=== PATIENT | male | born 1955 | race Caucasian/White ===

== ENCOUNTER 2018-09-08 17:17 | Emergency (ER) | payer OTHER ==
[2018-09-08 17:24] VITALS: BP 165/79
[2018-09-08] MEDS ORDERED: LIDOCAINE 1% INJ-PF (10 MG/ML) 30 ML SDV INJ ONE (17:33)
--- NOTE | 2018-09-08 17:38 | ER Document Report ---
ED General - General Chief Complaint: Skin Problem Stated Complaint: SKIN ISSUE Time Seen by Provider: 09/08/18 17:29 TRAVEL OUTSIDE OF THE [place] IN LAST 30 DAYS: No - HPI Notes: Patient is a 63-year-old male that presents to the emergency department for chief complaint of back abscess. Patient noticed an area of swelling and pain on the right back about 6 days ago. He denies any spontaneous drainage. He denies any history of abscesses in the past. Patient was seen at an urgent care and referred to the emergency room for incision and drainage. He denies any fevers or chills. He has not taken any medication at home for his symptoms. Past Medical History: Negative Past Surgical History: Negative Social History: Reviewed in chart Family History: Reviewed and noncontributory for presenting illness Allergies: Reviewed, see documented allergy list. REVIEW OF SYSTEMS: CONSTITUTIONAL : No fever No chills No diaphoresis No recent illness EENT: No vision changes No congestion No sore throat CARDIOVASCULAR: No chest pain No palpitations RESPIRATORY: No shortness of breath No cough No difficulty breathing GASTROINTESTINAL: No abdominal pain No nausea No vomiting No diarrhea GENITOURINARY: No dysuria No hematuria No difficulty urinating MUSCULOSKELETAL: No back pain No leg pain No arm pain SKIN: No rashes Back abscess LYMPHATIC: No swollen, enlarged glands. NEUROLOGICAL: No lightheadedness No headache No weakness No paresthesias PSYCHIATRIC: No anxiety No depression PHYSICAL EXAMINATION: Vital signs reviewed, nursing noted reviewed. GENERAL: Well-appearing, well-nourished and in no acute distress. HEAD: Atraumatic, normocephalic. EYES: Eyes appear normal, extraocular movements intact, sclera anicteric, conjunctiva are normal. ENT: nares patent, oropharynx clear without exudates. Moist mucous membranes. NECK: Normal range of motion, supple without lymphadenopathy LUNGS: Breath sounds clear to auscultation bilaterally and equal. No wheezes rales or rhonchi. HEART: Regular rate and rhythm without murmurs ABDOMEN: Soft, nontender, normoactive bowel sounds. No rebound, guarding, or rigidity. No masses appreciated. EXTREMITIES: Nontender, good range of motion, no pitting or edema. NEUROLOGICAL: No focal neurological deficits. Moves all extremities spontaneously Motor and sensory grossly intact on exam. PSYCH: Normal mood, normal affect. SKIN: Warm, Dry, normal turgor. Abscess with fluctuance to right thoracic paraspinal region with surrounding erythema, tender to palpation - Related Data Allergies/Adverse Reactions: Sulfa (Sulfonamide Antibiotics) Allergy (Verified 09/08/18 17:40) Past Medical History - Social History Smoking Status: Never Smoker Family History: Reviewed & Not Pertinent Review of Systems - Review of Systems Notes: Dictated Physical Exam - Vital signs Vitals: Temp Pulse Resp BP Pulse Ox 97.7 F 92 12 165/79 H 100 09/08/18 17:22 09/08/18 17:22 09/08/18 17:22 09/08/18 17:22 09/08/18 17:22 - Notes Notes: Dictated Course - Re-evaluation Re-evalutation: 09/08/18 17:35 Vitals reviewed. Nursing notes reviewed. Incision and drainage performed on right back abscess. Patient started on antibiotics for the surrounding cellulitis. Discharged in stable condition. Will follow with PCP - Vital Signs Vital signs: Temp Pulse Resp BP Pulse Ox 97.7 F 92 12 165/79 H 100 09/08/18 17:22 09/08/18 17:22 09/08/18 17:22 09/08/18 17:22 09/08/18 17:22 Procedures - Incision and Drainage Right Back Time completed: 17:36 - packing placed Type: Simple Anesthetic type: 1% Lidocaine mL's of anesthetic: 3 Blade size: 11 I&D procedure: Betadine prep applied Incision Method: Incision made by scalpel Amount/type of drainage: copious Notes: 09/08/18 17:51 Skin cleaned with Betadine. Local infiltration of 3 mL's lidocaine 1% for anesthesia. Good anesthesia achieved. 1.5 cm linear incision made overlying the abscess with an 11 blade scalpel. Copious amounts of purulent discharge expressed. Area packed with iodoform gauze. Patient tolerated well with no immediate complications. Discharge - Discharge Clinical Impression: Abscess, Cellulitis of back Condition: Stable Disposition: HOME, SELF-CARE Instructions: Abscess ([facility]), Cephalexin ([facility]), Post Incision and Drainage, Trimethoprim-Sulfa ([facility]) Additional Instructions: Please return to the emergency department if you have any worsening, or concern of your symptoms. Please return to the emergency department if you develop chest pain, difficulty breathing, severe abdominal pain, or ongoing vomiting. Please follow-up with your primary care physician in 2-3 days and any other recommended physicians. If prescribed, take all medications as directed. If you have any questions or concerns do not hesitate to return the emergency department for evaluation. Remove the packing after 24 hours if it has not already fallen out. Do not replace the packing if it comes out on its own. Prescriptions: Cephalexin Monohydrate [Keflex 500 mg Capsule] 500 mg PO Q6H 7 Days capsule Sulfamethoxazole/Trimethoprim [Bactrim Ds Tablet] 1 each PO BID #14 tablet Referrals: JOSIANE BROWN MD [Primary Care Provider] - Follow up in 3-5 days
== END 2018-09-08 18:04 | disposition home or self-care (01) ==
LOC: ER 17:17
DX: L02.212 Cutaneous abscess of back [any part, except buttock and flank] (principal); L03.312 Cellulitis of back [any part except buttock and flank]; Z88.2 Allergy status to sulfonamides
CPT/HCPCS: 99283; 10060; A6266

== ENCOUNTER 2019-05-16 13:05 | Emergency (ER) | payer SELFPAY ==
[2019-05-16 13:31] VITALS: BP 163/83
--- NOTE | 2019-05-16 14:51 | ER Document Report ---
ED Extremity Problem, Upper - General Chief Complaint: Shoulder Pain Stated Complaint: SHOULDER PAIN Time Seen by Provider: 05/16/19 14:44 Primary Care Provider: [facility] [Provider Group] - Follow up as needed EDUARDO BEARD MD [ACTIVE STAFF] - Follow up as needed AC FIELDS MD [ACTIVE STAFF] - Follow up as needed Mode of Arrival: Ambulatory Information source: Patient Notes: 63-year-old male presented to ED for complaint of bilateral shoulder pain off and on for 3 weeks to a month. He states he woke up one night was severe pain the pain comes and goes he does not have any pain at this time. He states his been to the chiropractor they adjusted them and then he did have pain for few days and it comes back and forth. He states he has been taken Tylenol then this morning he had some stomach pain went to the bathroom had a big bowel movement diarrhea and then was better they went to work and had another stool and now is much better does not have any nausea or pain. He states he did have a colonoscopy about 20 years ago with a large amount of polyps and a large part of his intestines removed due to adhesions and polyps and has not been back to since then. Patient is alert oriented respirations regular and unlabored speaking in full sentences walks with even steady gait there TRAVEL OUTSIDE OF THE [place] IN LAST 30 DAYS: No - HPI Patient complains to provider of: Shoulder Onset: Other Recent injury: No - Month Quality of pain: Sharp Severity of pain: Intermittent Pain Level: Denies Associated symptoms: Other - Deep breath and sometimes movement Exacerbated by: Nothing Relieved by: Nothing Similar symptoms previously: Yes Recently seen / treated by doctor: Yes - Related Data Allergies/Adverse Reactions: Sulfa (Sulfonamide Antibiotics) Allergy (Verified 05/16/19 13:22) Past Medical History - General Information source: Patient - Social History Smoking Status: Never Smoker Frequency of alcohol use: None Drug Abuse: None - 1 is 10 Lives with: Family Family History: Reviewed & Not Pertinent Patient has suicidal ideation: No Patient has homicidal ideation: No - Past Medical History Cardiac Medical History: Reports: None Pulmonary Medical History: Reports: None EENT Medical History: Reports: None Neurological Medical History: Reports: None Endocrine Medical History: Reports: None Renal/ Medical History: Reports: None Malignancy Medical History: Reports None GI Medical History: Reports: Hx Colonoscopy, Hx Endoscopy Musculoskeletal Medical History: Reports None Skin Medical History: Reports None Psychiatric Medical History: Reports: None Traumatic Medical History: Reports: None Infectious Medical History: Reports: None Past Surgical History: Reports: Hx Abdominal Surgery - intestine, Hx Tonsillectomy Review of Systems - Review of Systems Constitutional: No symptoms reported EENT: No symptoms reported Cardiovascular: No symptoms reported Respiratory: No symptoms reported Gastrointestinal: Diarrhea, Nausea Genitourinary: No symptoms reported Male Genitourinary: No symptoms reported Musculoskeletal: No symptoms reported - Bilateral shoulder pain on and off no injury Skin: No symptoms reported Hematologic/Lymphatic: No symptoms reported Neurological/Psychological: No symptoms reported -: Yes All other systems reviewed and negative Physical Exam - Vital signs Vitals: Temp Pulse Resp BP Pulse Ox 97.8 F 80 16 163/83 H 97 05/16/19 13:27 05/16/19 13:27 05/16/19 13:27 05/16/19 13:27 05/16/19 13:27 Interpretation: Normal - General General appearance: Appears well, Alert - HEENT Head: Normocephalic, Atraumatic Eyes: Normal Pupils: PERRL - Respiratory Respiratory status: No respiratory distress Chest status: Nontender Breath sounds: Normal Chest palpation: Normal - Cardiovascular Rhythm: Regular Heart sounds: Normal auscultation Murmur: No - Abdominal Inspection: Normal Distension: No distension Bowel sounds: Hyperactive Tenderness: Tender Organomegaly: No organomegaly - Back Back: Normal, Nontender - Extremities General upper extremity: Normal inspection, Nontender, Normal color, Normal ROM, Normal temperature General lower extremity: Normal inspection, Nontender, Normal color, Normal ROM, Normal temperature, Normal weight bearing. No: Tamiko's sign Shoulder: Normal, Nontender, Other - Pain at times not at this time though he states that in the nighttime sometimes it wakes sitting up it is so bad but he denies any pain at this time he has full range of motion to both shoulders. He states he has been to chiropractor and it stopped for a while but came back. - Neurological Neuro grossly intact: Yes Cognition: Normal Orientation: AAOx4 [place] Coma Scale Eye Opening: Spontaneous [place] Coma Scale Verbal: Oriented [place] Coma Scale Motor: Obeys Commands [place] Coma Scale Total: 15 Speech: Normal Motor strength normal: LUE, RUE, LLE, RLE Sensory: Normal - Psychological Associated symptoms: Normal affect, Normal mood - Skin Skin Temperature: Warm Skin Moisture: Dry Skin Color: Normal Course - Re-evaluation Re-evalutation: 05/16/19 19:48 X-rays discussed with patient and written report of x-rays given to patient. Patient was given the name and number of primary care as well as gastroenterology to follow-up. Patient was instructed that he would need to follow-up with orthopedics for his chronic shoulder pain. Patient verbalized understanding and agreement with treatment plan impaction was discharged home. - Vital Signs Vital signs: Temp Pulse Resp BP Pulse Ox 97.8 F 80 16 163/83 H 97 05/16/19 13:27 05/16/19 13:27 05/16/19 13:27 05/16/19 13:27 05/16/19 13:27 - Diagnostic Test Radiology reviewed: Image reviewed, Reports reviewed Discharge - Discharge Clinical Impression: intermittent shoulder pain bilateral Condition: Stable Disposition: HOME, SELF-CARE Additional Instructions: He was seen today for intermittent pain in bilateral shoulders for which he was up at night. He states that your sister sent to to the emergency room because this could be cardiac. You have no cardiac symptoms at this time. He states that you had some stomach upset earlier but that is all relieved and you not having any stomach pain or discomfort at this time. If you continue to have stomach pain you will need to follow-up with your GI specialist. Your x-ray is negative for any acute problems with your shoulders. Please follow-up with a telecom specialist for your intermittent shoulder pain. Acetaminophen Acetaminophen may be taken for pain relief or fever control. It's much safer than aspirin, offering a wider range of "safe" dosages. It is safe during . Some brand names are Tylenol, Panadol, Datril, Anacin 3, Tempra, and Liquiprin. Acetaminophen can be repeated every four hours. The following are maximum recommended dosages: WEIGHT Dose Drops Elixir Chewable(80mg) (LBS.) drprs=droppers tsp=teaspoon 6 40 mg .4 ml (1/2) 6-11 80 mg .8 ml (full) 1/2 tsp 1 tab 12-16 120 mg 1 1/2 drprs 3/4 tsp 1 1/2 tabs 17-23 160 mg 2 drprs 1 tsp 2 tabs 24-30 240 mg 3 drprs 1 1/2 tsp 3 tabs 30-35 320 mg 2 tsp 4 tabs 36-41 360 mg 2 1/4 tsp 4 1/2 tabs 42-47 400 mg 2 1/2 tsp 5 tabs 48-53 480 mg 3 tsp 6 tabs 54-59 520 mg 3 1/4 tsp 6 1/2 tabs 60-64 560 mg 3 1/2 tsp 7 tabs 65-70 600 mg 3 3/4 tsp 7 1/2 tabs 71-76 640 mg 4 tsp 8 tabs 77-82 720 mg 4 1/2 tsp 9 tabs 83-88 800 mg 5 tsp 10 tabs >89 pounds or adults 650 mg to 900 mg Acetaminophen can be repeated every four hours. Maximum daily dose not to exceed 4000 mg. These maximum recommended dosages are slightly higher than the dosages written on the product container, but these dosages are very safe and well below the toxic dosage for acetaminophen. She is ibuprofen Ibuprofen is an excellent, safe drug for pain control. In addition, it has potent antiinflammatory effects which are beneficial, especially in the treatment of injuries, arthritis, or tendonitis. It's best to take ibuprofen with food. Persons with ulcer disease or allergy to aspirin should notify their physician of this before taking ibuprofen. Take the medication exactly as prescribed. Don't take additional doses unless instructed to do so by your doctor. If you develop wheezing, shortness of breath, hives, faintness, stomach pain, vomiting, or dark black stools, return for re-evaluation at once. FOLLOW-UP CARE: If you have been referred to a physician for follow-up care, call the physicians office for an appointment as you were instructed or within the next two days. If you experience worsening or a significant change in your symptoms, notify the physician immediately or return to the Emergency Department at any time for re-evaluation. Forms: Elevated Blood Pressure, Return to Work Referrals: EDUARDO BEARD MD [ACTIVE STAFF] - Follow up as needed AC FIELDS MD [ACTIVE STAFF] - Follow up as needed [facility] [Provider Group] - Follow up as needed
--- NOTE | 2019-05-16 15:27 | RADIOLOGY REPORT (SQ) ---
EXAM DESCRIPTION: SHOULDER BILAT 2 OR MORE VIEWS COMPLETED DATE/TIME: 05/16/2019 3:17 pm REASON FOR STUDY: pain in both shoulders interm for 1 month COMPARISON: None. NUMBER OF VIEWS: Three views. TECHNIQUE: Internal rotation, external rotation, and Y view images acquired of the right and left sh oulder. LIMITATIONS: None. FINDINGS: MINERALIZATION: Normal. BONES: No acute fracture. No worrisome bone lesions. JOINTS: No dislocation. VISUALIZED LUNGS AND RIBS: No pneumothorax. No rib fracture. SOFT TISSUES: No radiopaque foreign body. OTHER: No other significant finding. IMPRESSION: NEGATIVE STUDY OF THE RIGHT AND LEFT SHOULDERS. NO RADIOGRAPHIC EVIDENCE OF ACUTE INJURY . TECHNICAL DOCUMENTATION: JOB ID: [id number] [employer]- All Rights Reserved Reading location - IP/workstation name: [email or web address]
== END 2019-05-16 15:48 | disposition home or self-care (01) ==
LOC: ER 13:05
DX: M25.511 Pain in right shoulder (principal); M25.512 Pain in left shoulder; R19.7 Diarrhea, unspecified; R11.0 Nausea; Z88.2 Allergy status to sulfonamides
CPT/HCPCS: 99283